=== PATIENT | female | born 2000 | race Caucasian/White ===

== ENCOUNTER 2025-01-20 05:43 | Day surgery (SDC) | payer BC ==
[2025-01-20] MEDS ORDERED: SODIUM CHLORIDE 0.9% 1,000 ML IV SCH (06:05)
[2025-01-20 06:56] VITALS: BP 129/90; RESP 16; TEMP 98.7
[2025-01-20] MEDS: IV FLUID CONTINUATION 1,000 ML IV ONE (07:10)
[2025-01-20] MEDS: SODIUM CHLORIDE 0.9% 500 ML 500 ML IV ONE (08:00)
[2025-01-20 09:03] VITALS: PULSE 86
--- NOTE | 2025-01-20 11:14 | P.EPPROC ---
- EP Procedure Note Electrophysiology Procedure Note: Diagnosis Recurrent presyncope Twelve-lead EKG shows sinus tachycardia normal NM interval narrow QRS Tilt table test per protocol Blood pressure 133/73 mmHg baseline heart rate 107 beats a minute Patient was tilted upright from angle of 70 degrees per protocol Minimal decrease in blood pressure while in the upright position. Lowest blood pressure was 103/65 mmHg Heart rate increased from 107 beats a minute 117 beats a minute in the first 10 minutes and remained elevated throughout the test in the 120s Patient complained of mild dizziness heart racing, numbness shortness of breath diaphoresis feeling hot nauseated. Impression Resting sinus tachycardia in the supine position of 107 beats per Very mild decrease in blood pressure, gradual, through the test Gradual increase in heart rate through the test No evidence for neurocardiogenic phenomena
== END 2025-01-20 08:38 | disposition home or self-care (01) ==
LOC: CATHEP 05:43
PROVIDERS: ATTEND Internal Medicine Clinical Cardiac Electrophysiology
DX: R55 Syncope and collapse (principal); R42 Dizziness and giddiness; R00.2 Palpitations
CPT/HCPCS: 81025; 93660